=== PATIENT | female | born 1960 | race Caucasian/White ===

== ENCOUNTER → 2018-08-10 | Outpatient (CLI) | payer OTHER | LOC: COL.RAD 07:52 | DX: R11.2 Nausea with vomiting, unspecified (principal) | CPT/HCPCS: A9541 ==

== ENCOUNTER 2020-01-16 10:39 | Outpatient (RCR) | payer OTHER | END 2020-04-15 | disposition home or self-care (01) | LOC: WSST | DX: R13.12 Dysphagia, oropharyngeal phase (principal) ==

== ENCOUNTER → 2020-01-28 | Outpatient (CLI) | payer OTHER | LOC: COL.RAD 15:21 | DX: R13.12 Dysphagia, oropharyngeal phase (principal) ==